=== PATIENT | female | born 2000 | race African-American/Black ===

== ENCOUNTER 2025-03-08 19:05 | Emergency (ER) | payer MEDICAID ==
[~2025-03-08] VITALS: Ht 172.7 cm; Wt 77.0 kg
[2025-03-08 19:09] VITALS: O2SAT 99
[2025-03-08] MEDS ORDERED: DIPHENHYDRAMINE 50MG CAPSULE PO ONE (21:15)
[2025-03-08] MEDS ORDERED: LORAZEPAM 1MG TABLET PO ONE (21:15)
[2025-03-08 21:16] LABS: BASOPHILS % 0.5 % (0.0-2.0); HEMATOCRIT. 37.1 % (36.0-48.0); HEMOGLOBIN. 12.1 g/dL (12.0-16.0); LYMPHOCYTES % 8.4 % (20.0-50.0); MEAN CORPUSCULAR HEMOGLOBIN 28.5 pg (28.0-32.0); MEAN CORPUSCULAR HGB CONC 32.5 g/dL (31.0-37.0); MEAN CORPUSCULAR VOLUME 87.8 fL (81.0-99.0); MEAN PLATELET VOLUME 8.1 fl (7.4-10.4); MONOCYTES % 4.8 % (2.0-8.0); NEUTROPHILS % 86.3 % (40.0-76.0); PLATELET 264 x1000/uL (130-400); RED BLOOD CELL COUNT 4.23 mill/uL (4.2-5.4); RED CELL DISTRIBUTION WIDTH 13.2 % (11.6-14.6); WHITE BLOOD COUNT 9.4 x1000/uL (4.5-11.0)
[2025-03-08 21:25] LABS: CHLORIDE 106 mEq/L (98-107); POTASSIUM 4.6 mEq/L (3.5-5.1); SODIUM 139 mEq/L (136-145)
[2025-03-08 21:26] LABS: CARBON DIOXIDE 26 mEq/L (21-32)
[2025-03-08 21:31] LABS: ETHANOL BLOOD < 10 mg/dL (<10); GLUCOSE 100 mg/dL (70-105); UREA NITROGEN BLOOD 9 mg/dL (9-23)
[2025-03-08 21:32] LABS: HCG SCREEN NEGATIVE
[2025-03-08 21:33] LABS: ACETAMINOPHEN < 2 ug/mL (10-30)
[2025-03-08] MEDS: LORAZEPAM 1MG TABLET PO NR (22:09)
[2025-03-08] MEDS: DIPHENHYDRAMINE 25MG CAPSULE PO NR (22:09)
[2025-03-08 22:35] LABS: CLARITY URINE CLEAR (CLEAR); COLOR URINE YELLOW (YELLOW); GLUCOSE URINE NEGATIVE (NEGATIVE); KETONES URINE NEGATIVE (NEGATIVE); LEUKOCYTE ESTERASE URINE TRACE (NEGATIVE); NITRITE URINE NEGATIVE (NEGATIVE); OCCULT BLOOD URINE NEGATIVE (NEGATIVE); PH URINE 6.5 (4.5-8.0); PROTEIN URINE NEGATIVE (NEGATIVE); SPECIFIC GRAVITY URINE 1.008 (1.005-1.030); UROBILINOGEN URINE 0.2 E.U./dL (0.2-1.0)
[2025-03-08 22:36] LABS: *AMPHETAMINES SCREEN URINE NEGATIVE (NEGATIVE); *BARBITURATES SCREEN URINE NEGATIVE (NEGATIVE); *BENZODIAZEPINES SCREEN URINE NEGATIVE (NEGATIVE); *COCAINE SCREEN URINE NEGATIVE (NEGATIVE); CANNABINOID URINE SCREEN PRESUMPTIVE POSITIVE (NEGATIVE); ECSTASY MDMA SCREEN URINE NEGATIVE (NEGATIVE); METHADONE URINE SCREEN NEGATIVE (NEGATIVE); OPIATES URINE SCREEN NEGATIVE (NEGATIVE); PHENCYCLIDINE URINE SCREEN NEGATIVE (NEGATIVE)
[2025-03-08 22:45] LABS: BACTERIA URINE NONE SEEN; RBC URINE NONE SEEN /hpf (0-2); SQUAMOUS EPITHELIAL CELL URINE RARE /lpf (RARE/1+); WBC URINE 0-2 /hpf (0-2)
[2025-03-09 15:11] VITALS: BP 111/77; PULSE 78; RESP 16; TEMP 36.7; O2SAT 100
== END 2025-03-09 15:21 ==
LOC: ER 19:05
DX: R46.2 Strange and inexplicable behavior (principal); R45.851 Suicidal ideations; Z79.899 Other long term (current) drug therapy; Z20.822 Contact with and (suspected) exposure to COVID-19
CPT/HCPCS: 80305; 80048; 81003; 80307; 80329; 80320; 84703; 85025; 36415; 99285; 87426; Q0163; Z7610 ×2; G0480